=== PATIENT | female | born 1960 | race Caucasian/White ===

== ENCOUNTER 2023-02-04 17:50 | Emergency (ER) | payer OTHER, SELFPAY ==
[2023-02-04] VITALS (7 sets, daily range): BP systolic 119–158; BP diastolic 86–101; PULSE 91–106; RESP 18–24; TEMP 36.5; O2SAT 91–99
--- NOTE | ~2023-02-04 | XR_ITS ---
EXAMINATION: XR chest 2V Exam Date/Time: 02/04/2023 18:25 CDT HISTORY: HEAVY, SHARP, CHEST PAIN, EXTREME SOB Comparison: 01/10/2009. RESULT: Lines, tubes, and devices: None. Lungs and pleura: Clear. Cardiomediastinal silhouette: Stable. Other: No acute osseous or upper abdominal finding. IMPRESSION: No acute cardiopulmonary process. Reviewed, dictated and finalized at location K.
--- NOTE | ~2023-02-04 | CT_ITS ---
EXAMINATION: CT abdomen pelvis w con DATE: 02/04/2023 20:03 INDICATION: epigastric pain, elevated lipase TECHNIQUE: Computed tomography (CT) of the abdomen and pelvis was performed with 100 mL Omnipaque-350 intravenous contrast. Automated exposure control and iterative reconstruction technique were employe d. The dose-length product was 1491.27 mGy-cm. COMPARISON: 10/10/2009; ultrasound abdomen 02/04/2023. FINDINGS: Lower thorax: Left lower lobe scar/atelectasis. Liver: Normal. Biliary/Gallbladder: Gallbladder is normal. No bile duct dilation. Pancreas: No mass or duct dilation. No peripancreatic inflammatory change. near the head of the pancr eas may represent changes of chronic pancreatitis or adjacent vascular calcification. Spleen: Normal. Adrenals:No mass. Kidneys: Bilateral cortical scarring, severe on the right and mild on the left. Multiple bilateral no nobstructing calculi. Multiple subcentimeter bilateral hypodensities, too small to characterize but m ost likely represent cysts. No suspicious mass. No hydronephrosis. GI tract: No small or large bowel dilation. Normal appendix. Mesentery/Peritoneum: No ascites, mass, or free air. Retroperitoneum: No mass. Atherosclerotic abdominal aortic and/or arterial calcifications. Pelvis: Pelvic organs are within normal limits. Soft Tissues: Soft tissues and body wall unremarkable. Bones: No acute osseous finding. IMPRESSION: No acute abdominopelvic process detected. Reviewed, dictated and finalized at location K.
--- NOTE | ~2023-02-04 | US_ITS ---
EXAMINATION: US abdomen limited DATE: 02/04/2023 20:20 INDICATION: epigastric pain, elevated lft's and elevatedlipase TECHNIQUE: Multiple grayscale and Doppler ultrasound images of limited portions of the abdomen were o btained. COMPARISON: None available. FINDINGS: The visualized portions of the pancreas are normal. The liver is normal with normal echogen icity and echotexture. No surface nodularity. Normal hepatopetal flow in the main portal vein. 4 mm e chogenic focus without shadowing or twinkle artifact adherent to the gallbladder wall. The gallbladde r is otherwise normal with no abnormal wall thickening, pericholecystic fluid or stones. The common b ile duct measures 4 mm. There was no sonographic Prather sign. IMPRESSION: No sonographic evidence of cholecystitis. 4 mm gallbladder polyp versus adherent stone, no follow-up recommended at this time. Reviewed, dictated and finalized at location K. IMPRESSION: No sonographic evidence of cholecystitis. 4 mm gallbladder polyp versus adheren t stone, no follow-up recommended at this time.
--- NOTE | 2023-02-04 17:51 | ECG_ITS ---
Measurements Intervals [place] Rate: 101 P: 62 VA: 164 QRS: 55 QRSD: 82 T: 38 QT: 338 QTc: 438 Interpretive Statements SINUS TACHYCARDIA BASELINE ARTIFACT NONSPECIFIC T-WAVE ABNORMALITY BORDERLINE ECG NO PREVIOUS ECG AVAILABLE FOR COMPARISON Electronically Signed On 02-05-2023 11:50:01 CDT by Giorgi Velez M.D.
[2023-02-04 18:23] LABS: Basophils Absolute Auto 0.1 K/mm3 (0.0-0.1); Basophils Percent Auto 0.6 % (0.2-1.2); Eosinophils Absolute Auto 0.2 K/mm3 (0-0.3); Eosinophils Percent Auto 2.4 % (0-4.4); Hematocrit 41.3 % (37.0-47.0); Hemoglobin 13.4 g/dL (12.0-15.0); Immature Granulocyte Absolute 0.02 K/mm3 (0.00-0.031); Immature Granulocyte Percent A 0.2 % (0-0.5); Lymphocytes Percent Auto 25.7 % (18.3-44.2); Mean Corpuscular HGB Conc 32.4 g/dl (32-36); Mean Corpuscular Hemoglobin 29.7 pg (26-34); Mean Corpuscular Volume 91.6 fl (80-100); Mean Platelet Volume 12.5 fl (7.4-10.4); Monocytes Absolute Auto 1.2 K/mm3 (0.1-0.6); Monocytes Percent Auto 11.9 % (2.6-8.5); Neutrophils Percent Auto 59.2 % (45.5-73.1); Platelet Count Result 298 k/mm3 (150-375); Red Blood Count 4.51 M/mm3 (4.2-5.4); Red Cell Distribution Width 13.2 % (11.5-14.5); White Blood Count 10.1 K/mm3 (4.5-10.0)
[2023-02-04 18:42] LABS: Prothrombin Time 13.1 Seconds (11.1-14.7)
[2023-02-04 18:43] LABS: Alanine Aminotransferase 45 U/L (6-35); Albumin Level 4.5 g/dL (3.5-5.1); Alkaline Phosphatase 125 U/L (38-126); Anion Gap 8 mmol/L (8-16); Aspartate Amino Transferase 37 U/L (14-36); Bilirubin,Total 0.7 mg/dL (0.2-1.3); Blood Urea Nitrogen 12 mg/dL (7-17); Carbon Dioxide 28 mmol/L (22-30); Chloride 100 mmol/L (98-107); Estimated CRCL calculation 120 ml/min; Estimated Glomerular Filt Rate > 60; Glucose 115 mg/dL (65-110); Lipase 303 U/L (23-300); Partial Thromboplastin Time 29.7 SECONDS (22.3-36.8); Sodium 136 mmol/L (137-145)
[2023-02-04 18:54] LABS: Troponin I < 0.012 ng/mL (0.000-0.034)
--- NOTE | 2023-02-04 19:28 | ED.GENADULT ---
HPI - General Adult General Chief complaint: Chest Pain Stated complaint: CP since Friday, nausea Time Seen by Provider: 02/04/23 19:11 History of Present Illness HPI narrative: Patient 62-year-old female who presents the emergency department with chief complaint of chest pain. 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 Patient states that currently her pain is resolved patient denies vomiting denies diarrhea denies diaphoresis. Related Data Allergies Allergy/AdvReac Type Severity Reaction Status Date / Time No Known Allergies Allergy Mild Verified 05/23/08 14:17 Review of Systems Review of Systems: A 10 system review of systems was completed on the patient and is negative except for what is stated in the HPI. Nursing and ancillary documentation was reviewed. PMFSH Comments Prior cardiac stents Exam Narrative: GENERAL: Well-appearing, well-nourished, and in no acute distress. HEAD: Normocephalic, atraumatic. EYES: PERRLA and EOMI. ENT: Nares clear, no rhinorrhea or epistaxis. Mucous membranes moist. NECK: Supple. CHEST: Clear to auscultation. No respiratory distress. Chest wall is tender to palpation of the left sternal border HEART: Regular rate and rhythm. No murmur heard. Normal peripheral pulses. ABDOMEN: Soft, nontender, nondistended, normal active bowel sounds. EXTREMITIES: Normal range of motion. No edema. SKIN: Warm, dry, no rash. NEURO: No focal deficits. Alert and oriented x3. PSYCH: Normal mood and affect. Course Vital Signs Vital signs: Vital Signs Temperature 36.5 C 02/04/23 18:03 Pulse Rate 102 H 02/04/23 18:03 Respiratory Rate 18 02/04/23 18:03 Blood Pressure 119/101 H 02/04/23 18:03 Pulse Oximetry 94 02/04/23 18:03 Oxygen Delivery Room Air 02/04/23 18:03 Temperature 36.5 C 02/04/23 18:03 Pulse Rate 106 H 02/04/23 21:12 Respiratory Rate 24 H 02/04/23 21:12 Blood Pressure 158/86 H 02/04/23 21:12 Pulse Oximetry 99 02/04/23 21:12 Oxygen Delivery Room Air 02/04/23 18:03 Medical Decision Making MDM Narrative Medical decision making narrative: Differential diagnosis includes ACS, pancreatitis, cholecystitis, Laboratory studies were obtained which showed a normal CBC with a white count of 10.0 hemoglobin is 13.4 electrolytes were obtained which were within normal limits AST and ALT were slightly elevated with an AST of 37 and ALT of 45 bilirubin is normal at 0.7 troponin was negative for 0-hour and 3-hour lipase was 303 Chest x-ray showed no focal infiltrate EKG showed sinus tachycardia rate of [address] elevation or ST depression Due to the slightly elevated liver enzymes and the lipase of [address] were obtained that showed no evidence of pancreatitis and no evidence of acute cholecystitis. Vital Signs Vital Signs: Vital Signs Temperature 36.5 C 02/04/23 18:03 Pulse Rate 102 H 02/04/23 18:03 Respiratory Rate 18 02/04/23 18:03 Blood Pressure 119/101 H 02/04/23 18:03 Pulse Oximetry 94 02/04/23 18:03 Oxygen Delivery Room Air 02/04/23 18:03 Temperature 36.5 C 02/04/23 18:03 Pulse Rate 106 H 02/04/23 21:12 Respiratory Rate 24 H 02/04/23 21:12 Blood Pressure 158/86 H 02/04/23 21:12 Pulse Oximetry 99 02/04/23 21:12 Oxygen Delivery Room Air 02/04/23 18:03 Lab Data 02/04/23 18:06 02/04/23 18:06 Labs: Lab Results 02/04/23 02/04/23 Range/Units 18:06 21:09 WBC 10.1 H (4.5-10.0) K/mm3 RBC 4.51 (4.2-5.4) M/mm3 Hgb 13.4 (12.0-15.0) g/dL Hct 41.3 (37.0-47.0) % MCV 91.6 (80-100) fl MCH 29.7 (26-34) pg MC
[2023-02-04] MEDS: ASPIRIN 81 MG CHEWABLE TABLET 324 MG PO (19:35)
[2023-02-04 21:39] LABS: Troponin I < 0.012 ng/mL (0.000-0.034)
== END 2023-02-04 22:50 | disposition home or self-care (01) ==
PROVIDERS: Emergency Medicine; Emergency Provider Emergency Medicine; PCP Internal Medicine Gastroenterology
DX: R07.89 Other chest pain (principal); I51.9 Heart disease, unspecified; Z95.5 Presence of coronary angioplasty implant and graft; R00.0 Tachycardia, unspecified; R94.31 Abnormal electrocardiogram [ECG] [EKG]; R93.2 Abnormal findings on diagnostic imaging of liver and biliary tract
CPT/HCPCS: 36415; 71046; 74177; 76705; 80053; 83690; 84484; 85025; 85610; 85730; 93005; 99284; A9270; Q9967

== ENCOUNTER 2023-04-19 21:25 | Emergency (ER) | payer OTHER, SELFPAY ==
[2023-04-19 21:37] VITALS: BP 114/72; PULSE 84; RESP 16; TEMP 36.6; O2SAT 95
--- NOTE | 2023-04-19 21:43 | ED.DENTAL ---
HPI - Dental/Oral General Chief complaint: Dental/Oral Stated complaint: right side tooth/jaw pain Time Seen by Provider: 04/19/23 21:29 Source: patient and EMS Mode of arrival: EMS Limitations: no limitations History of Present Illness HPI Narrative: this is a 62-year-old female that presents via EMS after she was complaining of right jaw pain for the last week with some lower dental decay history of trauma back in 2003 with facial reconstruction surgery, currently no fever chills no shortness of breath no nausea vomiting no headaches no frontal sinus pressure and no earaches. Patient has a history of hypertension diabetes and COPD, denies any chest pain or abdominal pain no flank pain no dysuria. no upper facial swelling, no periorbital erythema or redness. MD Complaint: tooth pain Teeth map: 1. tooth decay with surrounding gum inflammation with right jaw swelling Onset (ago): day(s) Duration: constant Severity: moderate Severity scale (1-10): 6 Context: trauma (mechanism) and poor dental care Associated symptoms: gum swelling Related Data Home Medications Medication Instructions Recorded Confirmed atenolol 50 mg tablet mg 04/19/23 atorvastatin 80 mg tablet mg 04/19/23 budesonide-formoterol HFA 160 inhalation 04/19/23 mcg-4.5 mcg/actuation aerosol inhaler (Symbicort) carisoprodol 350 mg tablet mg 04/19/23 felodipine 10 mg tablet,extended mg PO 04/19/23 release 24 hr gabapentin 600 mg tablet mg 04/19/23 hydrocodone 10 mg-acetaminophen tablet 04/19/23 325 mg tablet lisinopril 2.5 mg tablet mg 04/19/23 metformin 500 mg tablet mg 04/19/23 04/19/23 potassium chloride 20 mEq meq PO 04/19/23 tablet,extended release(part/cryst) tiotropium bromide 2.5 inhalation 04/19/23 mcg/actuation mist for inhalation (Spiriva Respimat) venlafaxine 75 mg tablet mg 04/19/23 Allergies Allergy/AdvReac Type Severity Reaction Status Date / Time pravastatin Allergy Unknown Verified 04/19/23 21:34 Review of Systems Review of Systems: All systems reviewed & are unremarkable except as noted in HPI and below PMFSH Past Medical History Medical History COPD (chronic obstructive pulmonary disease) Diabetes mellitus HTN (hypertension) Exam Const: General: healthy appearing Nutritional Appearance: well nourished Orientation/consciousness: patient oriented x3 Limitations: no limitations HENMT: Head: normal to inspection Ears: external ears normal Face and sinus: sinuses nontender Teeth and gingiva: abnormal tooth and associated gingiva Other: Right lower jaw swelling Eyes: Conjunctivae: conjunctivae normal EOM: EOMs intact bilaterally Direct Ophthalmoscopy: no photophobia Neck: Neck: normal visual inspection, no lymphadenopathy and no meningeal signs Chest: Chest palpation & inspection: normal inspection of the chest Resp: Effort & Inspection: normal respiratory effort Auscultation: clear to auscultation bilaterally Cardio: Rate: regular rate Rhythm: regular rhythm GI: Auscultation: normal bowel sounds Skin: General skin exam: normal color Rashes: no rashes Wounds: no wounds Neuro: General: patient oriented x3, moves all extremities, no meningeal signs and no focal motor deficits Extrem: General: normal to inspection Psych: Mental Status: mental status grossly normal Affect: normal affect Course Course Emergency Course: patient receiving 1g IV ceftriaxone and IV Toradol for pain control. Otherwise vitals are stable blood pressure stable patient O2 sats 95% on room air she is afebrile. Vital Signs Vital signs: Vital Signs Temperature 36.6 C 04/19/23 21:37 Pulse Rate 84 04/19/23 21:37 Respiratory Rate 16 04/19/23 21:37 Blood Pressure 114/72 04/19/23 21:37 Pulse Oximetry 95 04/19/23 21:37 Oxygen Delivery Room Air 04/19/23 21:37 Temperature 36.6 C 04/19/23 21:37 Pulse Rate 84
[2023-04-19] MEDS: KETOROLAC 30 MG/ML VIAL (*BKC) IV PUSH (21:51)
[2023-04-19 22:19] VITALS: BP 114/72; PULSE 84; RESP 16; TEMP 36.6; O2SAT 95
== END 2023-04-19 22:26 | disposition home or self-care (01) ==
PROVIDERS: Emergency Provider Emergency Medicine
DX: K04.7 Periapical abscess without sinus (principal); K08.89 Other specified disorders of teeth and supporting structures; J44.9 Chronic obstructive pulmonary disease, unspecified; E11.9 Type 2 diabetes mellitus without complications; I10 Essential (primary) hypertension; Z79.891 Long term (current) use of opiate analgesic
CPT/HCPCS: 96365; 96375; 99284; J0696; J1885

== ENCOUNTER 2025-02-09 10:17 | Outpatient (CLI) | payer OTHER, SELFPAY ==
[2025-02-09 11:06] LABS: Anion Gap 7 mmol/L (4-12); Blood Urea Nitrogen 17 mg/dL (7-17); Calcium 10.1 mg/dL (8.4-10.2); Carbon Dioxide 26 mmol/L (22-30); Chloride 106 mmol/L (98-107); Estimated Glomerular Filt Rate > 60; Glucose 104 mg/dL (65-110); Osmolality Calculated 289 mOsm/kg (285-295); Potassium 4.8 mmol/L (3.4-5.0); Sodium 139 mmol/L (137-145)
--- OUTSIDE RECORDS SUMMARY | 2025-02-09 11:48 | XMS_ITS | CONTINUITY OF CARE DOCUMENT ---
Author Name taylorbritta kam Address Unknown Organization [facility] Address [address] [address] [facility] [address] [place] [address] Phone [phone] Care Team Providers Care Toy Mechanic Name Role Phone Laci Clark MD Unavailable CONSTANCE HAYWARD MD Unavailable [phone] CONSTANCE HAYWARD MD Unavailable [phone] INSURANCE PROVIDERS Payer name Policy type / Coverage type [place] [employer] party [place] MEDICAID (2) Medicaid [id number]
== END 2025-02-09 10:18 | disposition home or self-care (01) ==
PROVIDERS: PCP Internal Medicine Gastroenterology
DX: I10 Essential (primary) hypertension (principal)
CPT/HCPCS: 36415; 80048

== ENCOUNTER 2025-06-10 14:39 | Emergency (ER) | payer OTHER, SELFPAY ==
[2025-06-10 14:39] VITALS: BP 150/81; PULSE 70; RESP 20; TEMP 36.3; O2SAT 90
--- OUTSIDE RECORDS SUMMARY | 2025-06-10 14:43 | XMS_ITS | Encounter Summary ---
Author Organization [facility] Address [facility] [place] [address] Care Team Providers Care Senior Front End Developer Name Role Phone Donn Delgado MD Unavailable [phone] Lissette Wallace MD Primary Care Provider Unavail able Rizwan Zavala MD Primary Care Provider Encounter Details Date Type Department Care Team (Late st Contact Info) Description 01/30/2019 Abstract SFL CONVERSION [address] [place] [address] , Generic Conversion, Social History Tobacco Use Types Packs/Day Years Used Date Smoking Tobacco: Every Day Cigarettes Smokeless Tobacco: Never Alcohol Use Standard Drinks/Week Comments No 0 (1 standard drink = 0.6 oz pur e alcohol) Comments No Sex and Gender Information Value Date Recorded Sex Assigned at Female 01/20/2025 3:02 PM CDT Legal Sex Female 4:55 PM CDT Gender Identity Not on file Sexual Orientation Not on file Occupation Industry Job Start Date Job End Date Not on file Not on file Not on file Not on file documented as of this encounter Plan of Treatment Not on file documented as of this encounter Visit Diagnoses Not on filedocumented in this encounter Additional Health Concerns Infection Onset Date Last Indicated Resolved Time COVID-19 Rule Out 09/06/2021 09/06/2021 09/06/2021 8:37 PM RANGE ECOLOGIST COVID-19 Rule Out 09/06/2021 09/06/2021 09/07/2021 11:23 AM RANGE ECOLOGIST COVID-19 Rule Out 05/20/2022 05/20/2022 05/20/2022 2:36 AM CDT COVID-19 Rule Out 05/09/2023 05/09/2023 05/09/2023 1:17 PM CDT documented as of this encounter Care Teams Senior Front End Developer Relationship Specialty Start Date End Date Lissette Wallace MD [address] [place] [facility]. [address] [id number] PCP - General INTERNAL MEDICINE 05/25/17 06/01/25 Rizwan Zavala MD [address] [place] [phone] PCP - General FAMILY PRACTICE 06/02/25 Donn Delgado MD [address] [address] [place] Data Collection Specialist CARDIOVASCULAR DISEASE 12/16/16 documented as of this encounter
--- OUTSIDE RECORDS SUMMARY | 2025-06-10 14:43 | XMS_ITS | Encounter Summary ---
Author Organization [facility] Address [facility] [place] [address] Care Team Providers Care Irrigation Equipment Mechanic Name Role Phone Donn Delgado MD Unavailable [phone] Lissette Wallace MD Primary Care Provider Unavail able Rizwan Zavala MD Primary Care Provider Encounter Details Date Type Department Care Team (Late st Contact Info) Description 07/22/2018 Hospital Orders Only [facility] [place] [address] Donn Delgado MD [facility]. [address] [place], [place] [id number] Social History Tobacco Use Types Packs/Day Years [...] Rule Out 09/06/2021 09/06/2021 09/06/2021 8:37 PM WALLPAPERER COVID-19 Rule Out 09/06/2021 09/06/2021 09/07/2021 11:23 AM WALLPAPERER COVID-19 Rule Out 05/20/2022 05/20/2022 05/20/2022 2:36 AM CDT COVID-19 Rule Out 05/09/2023 05/09/2023 05/09/2023 1:17 PM CDT documented as of this encounter Care Teams Irrigation Equipment Mechanic Relationship Specialty Start Date End Date Lissette Wallace MD [facility]. [address] [address] PCP - General INTERNAL MEDICINE 05/25/17 06/01/25 Rizwan Zavala MD [address] [place] [phone] PCP - General FAMILY PRACTICE 06/02/25 Donn Delgado MD [address] [facility]. [address] [address] [place] Cupping Machine Operator CARDIOVASCULAR DISEASE 12/16/16 documented as of this encounter
--- OUTSIDE RECORDS SUMMARY | 2025-06-10 14:43 | XMS_ITS | Clinical Summary ---
Author Organization [facility] Address [facility] [place] [address] Care Team Providers Care Inclusion Intern Name Role Phone Donn Delgado MD Unavailable [phone] Rizwan Zavala MD Primary Care Provider Allergies Active Allergy Reactions Criticality Noted Date Comments Bupropion Hallucinations Medium 03/04/2022 Buspirone Hallucinations Medium 03/04/2022 Pravastatin Unknown 06/04/2017 Medications hydrocodone-chester taminophen 10-325 MG tablet Take 1 tablet by mouth every 8 (eight) hours as needed for Pain. 7 Active metFORMIN 500 MG tablet Take 1 tablet (500 mg total) by mouth daily with breakfast. 7 Active potassium chloride CR 20 MEQ tablet Take 1 tablet (20 mEq total) by mouth daily. 7 Active carisoprodol 350 MG tablet Take 1 tablet (350 mg total) by mouth 3 (three) times daily as needed for Muscle Spasms. 7 Active Felodipine 10 MG TABLET SR 24 HR Take 1 tablet by mouth daily. 90 tablet 3 7 Active atenolol 50 MG tablet Take 1 tablet (50 mg total) by mouth 2 (two) times daily. 180 tablet 1 8 Active albuterol sulfate HFA 108 (90 Base) MCG/ACT inhaler Inhale 2 puffs into the lungs 4 (four) times daily as needed for Shortness of breath. 2 Active SYMBICORT 160-4.5 MCG/ACT inhaler Inhale 2 puffs into the lungs 2 (two) times a day. 2 Active lisinopril 2.5 MG tablet Take 1 tablet (2.5 mg total) by mouth daily. 1 Active venlafaxine 75 MG tablet Take 1-2 tablets (75-150 mg total) by mouth 2 (two) times a day. 150 mg in the AM and 75 at bedtime. 1 Active atorvastatin (LIPITOR) 80 MG tablet Take 1 tablet (80 mg total) by mouth daily. 2 Active tiotropium (SPIRIVA RESPIMAT) 2.5 MCG/ACT inhaler (SPIRIVA RESPIMAT) Inhale 2 puffs into the lungs daily. Please provide assembled. 4 g 1 2 Active pregabalin (LYRICA) 75 MG capsule Take 1 capsule (75 mg total) by mouth 3 (three) times daily. 3 Active aspirin 325 MG tablet Take 1 tablet (325 mg total) by mouth daily. Active vitamin D2, ergocalciferol, (DRISDOL) 1.25 mg capsule Take 1 capsule (1.25 mg total) by mouth every 7 days. 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): Chronic -Continue Lipitor 40mg PO daily Fibromyalgia 07/19/2017 Anxiety 07/19/2017 Assessment & Plan (07/21/2017 12:14 PM PACKAGE DYEING MACHINE OPERATOR): Chronic -Continue Celexa 40mg PO daily -Home clonazepam qhs PRN for panic attack Lymphedema 07/16/2017 Assessment & Plan (07/19/2017 4:26 PM PACKAGE DYEING MACHINE OPERATOR): Chronic -Continue Lasix 40mg PO daily -Continue K+ 20meq PO daily Claudication 07/16/2017 Benign essential HTN 07/16/2017 Palpitations 07/16/2017 Angina pectoris 07/16/2017 CAD (coronary artery disease) 07/16/2017 Abnormal EKG 06/04/2017 Tobacco use 06/04/2017 Diabetes mellitus 06/04/2017 Assessment & Plan (07/21/2017 12:13 PM PACKAGE DYEING MACHINE OPERATOR): Chronic -Holding metformin for cath procedure -POC glucose checks Chest pain 06/04/2017 Assessment & Plan (02/16/2019 6:14 AM CDT): Chest Pain R/o Acute, unresolved, stable. Risk factors for ACS: DESx3, smoker, DM. Typical. Last stress test not recorded, [facility] 06/2018. EKG no acute ischemia, CXR cardiomegaly w/ vascular congestion, cardiac enzymes negative x 1. Heart score of 4 (Predicts 6-week risk of major adverse cardiac event). DDx: Anxiety given history, esophogeal spasm (better w/ nitro), CHF (vascular congestion, normal BNP), COPD (new O2 requirement 2 L nasal cannula? Weaning as tolerated) v drug reaction (took dab) -S/p 325 mg ASA in the ED, continue ASA 81mg daily -Sublingual nitroglycerin 0.4 mg for recurrent chest pain -Tylenol prn for mild pain -Trend cardiac enzymes at 0, 6, 12 hours. -Admit for Cardiac monitoring via telemetry -NPO @midnight -Obtain cardiac stress test in AM -Obtain echo (last done 2016 EF 65%) -HOLD BETA BLOCKERS for am stress -Cardiology consulted, appreciate recommendations -Obtain A1c and lipid panel ASCVD risk score -Counseled on smoking cessation -UDS ordered Assessment & Plan (07/21/2017 12:13 PM PACKAGE DYEING MACHINE OPERATOR): Hx of CAD with positive stress test on 04/10/17, planned for stenting with Dr. Delgado on 07/28/17 as outpatient EKG showed sinus bradycardia Troponin neg x3 -Cardiology consulted- Cath scheduled for 07/21/17 -Holding ASA for cath procedure -Continue Plavix, Nitro PRN Hypertension 06/04/2017 Assessment & Plan (07/19/2017 4:24 PM PACKAGE DYEING MACHINE OPERATOR): Chronic -Continue atenolol 50mg BID Encounters Date Type Department Care Team Description 06/02/2025 12:04 PM CDT - 06/02/2025 2:08 PM CDT Emergency [facility] [address] [place] [address] [place] [address] Reji Rock DO Neurologic Problem Discharge Disposition: Home or Self Care (Routine Discharge) 06/02/2025 Travel 05/09/2025 Scan [facility] Pre-Admission Testing [address] [place] [address] Erin Stiles RN from Last 3 Months Family History Medical History Relation Comments Heart Attack Brother Open Heart Brother Stent Cardiac Brother CAD Father CAD Mother CAD Son Relation Status Comments Brother (Age 63) Father Mother Son Social History Tobacco Use Types Packs/Day Years Used Date Smoking Tobacco: Every Day Cigarettes 1 25 Smokeless Tobacco: Never Tobacco Cessation:Ready to Q uit: Not Asked; Counseling Given: Not Answered Alcohol Use Standard Drinks/Week Comments No 0 (1 standard drink = 0.6 oz pur e alcohol) rarely Humiliation, Afraid, Rape, and Kick questionnair e Answer Date Recorded Within the last year, have y ou been afraid of your partner or ex-partner? No 05/09/2023 Within the last year, have y ou been humiliated or emotionally abused in other ways by your partner or ex-partner? No Within the last year, have y ou been kicked, hit, slapped, or otherwise physically hurt by your partner or ex-partner? No 05/09/2023 Within the last year, have y ou been raped or forced to have any kind of sexual activity by your partner or ex-partner? No 05/09/2023 Overall Financial Resource Strain (CARDIA) Answe r Date Recorded How hard is it for you to pa y for the very basics like food, housing, medical care, and heating? Not hard at all 05/09/2023 Hunger Vital Sign Answer Date Recorded Within the past 12 months, y ou worried that your food would run out before you got the money to buy more. Never true 05/09/20 23 Within the past 12 months, t he food you bought just didn't last and you didn't have money to get more. Never true 05/09/2023 PRAPARE - Transportation Answer Date Re corded In the past 12 months, has l ack of transportation kept you from medical appointments or from getting medications? No 04/25 In the past 12 months, has l ack of transportation kept you from meetings, work, or from getting things needed for daily living? No 05/09/2023 Housing Stability Vital Sign Answer Zeferino e Recorded In the last 12 months, was t here a time when you were not able to pay the mortgage or rent on time? No 05/09/2023 In the last 12 months, how many places have you lived? 1 05/09/2023 In the last 12 months, was t here a time when you did not have a steady place to sleep or slept in a longterm (including now)? No 05/09/2023 Comments No Sex and Gender Information Value Date Recorded Sex Assigned at Female 01/20/2025 3:02 PM CDT Legal Sex Female 4:55 PM CDT Gender Identity Not on file Sexual Orientation Not on file Occupation Industry Job Start Date Job End Date Not on file Not on file Not on file Not on file Last Filed Vital Signs Vital Sign Reading Time Taken Comments Blood Pressure 153/81 06/02/2025 12:04 PM CDT Pulse 59 06/02/2025 12:04 PM CDT Temperature 36.8 C (98.3 F) 06/02/2025 12:04 PM CDT Respiratory Rate 18 06/02/2025 12:04 PM CDT Oxygen Saturation 93% 06/02/2025 12:04 PM CDT Inhaled Oxygen Concentration - - Weight 115.2 kg (254 lb) 06/02/2025 12:04 PM CDT Height 152.4 cm (5') 06/02/2025 12:04 PM CDT Body Mass Index 49.61 06/02/2025 12:04 PM CDT Plan of Treatment Health Maintenance Due Date Last Done Comments Cervical Cancer Screening Pap Smear (Age 30 to 64) Every 3 Years 1961 Colorectal Cancer Screening Colonoscopy (10 Years) 1961 Kidney Health Evaluation 1961 Annual Physical 1964 Diabetes: Retinopathy Eye Exam 1979 Hepatitis C 1979 Pneumococcal Vaccine: 50+ Years (1 of 2 - PCV) 1980 Cervical Cancer Screening Pap with HPV Testing (Age 30 to 64) Every 5 Years 1991 Cervical Cancer Screening with HPV 1991 Mammogram Screening 2001 Lung Cancer Screening 2011 Zoster Vaccines (1 of 2) 2011 RSV Immunization or 60+ Years (1 - Risk 60-74 years 1-dose series) 2021 Hemoglobin A1C 11/08/2023 05/10/2023, 01/24, 07/19/2017 ASCVD LDL 05/11/2024 05/11/2023, 01/24, 07/20/2017, Additional history exists Lipid Panel 05/11/2024 05/11/2023, 01/24, 07/21/2018, Additional history exists DTaP, Tdap and Td Vaccines (2 - Td or Tdap) 09/22/2024 09/22/2014 COVID-19 Vaccine ( - season) 2025 Influenza Adult (#1) 2025 06/23/2018, 07/07/2017, 06/13/2016, Additional history exists Hepatitis A Vaccines Aged Out No long er eligible based on patient's age to complete this topic Meningococcal B Vaccine Aged Out No l onger eligible based on patient's age to complete this topic Meningococcal Vaccine Aged Out No chico mary eligible based on patient's age to complete this topic RSV Immunizations Under 20 Months Aged Out No longer eligible based on patient's age to complete this topic Goals Goal Patient Goal Type Associated Problems Recent Progress Patient-Stated? 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 Procedure Name Priority Date/Time Associated Diagnosis Comments D-DIMER, QUANTITATIVE STAT 06/02/2025 12:45 PM CDT TROPONIN, QUANT STAT 06/02/2025 12:45 PM CDT COMPREHENSIVE METABOLIC PANEL STAT 06/02/2025 12:45 PM CDT CBC W/DIFF AUTOMATED STAT 06/02/2025 12:[address] HEAD WO CON STAT 06/02/2025 12:38 PM CDT XR CHEST PORTABLE STAT 06/02/2025 12: 38 PM CDT ECG 12-LEAD STAT 06/02/2025 12:18 PM CDT LIPID PANEL Routine 05/11/2023 11:17 AM CDT HEMOGLOBIN, GLYCOSYLATED Routine 05/10/2023 12:31 AM CDT from Last 3 Months or Most Recently Relevant to Health Maintenance Results * (ABNORMAL) COMPREHENSIVE METABOLIC PANEL (06/02/2025 12:45 PM CDT) SODIUM S/P/B 141 136 - 145 MMOL/L 06/02/2025 1:14 PM CDT [facility] POTASSIUM S/P/B 4.1 3.5 - 5.1 MMOL/L 06/02/2025 1:14 PM CDT [facility] CHLORIDE S/P/B 103 98 - 107 MMOL/L 06/02/2025 1:14 PM CDT [facility] CO2 28.2 21.0 - 32.0 MMOL/L 06/02/2025 1:14 PM CDT [facility] GLUCOSE 106(H) 70 - 99 MG/DL 06/02/2025 1:14 PM CDT [facility] Comment: FASTING GLUCOSE 100 TO 125 MG/DL IS CONSISTENT WITH IMPAIRED FASTING GLUCOSE. FASTING GLUCOSE >125 MG/DL IS CONSISTENT WITH DIABETES. RANDOM GLUCOSE >200 MG/DL WITH HYPERGLYCEMIC SYMPTOMS IS CONSISTENT WITH DIABETES. PER ADA GUIDELINES BUN 11 6 - 24 MG/DL 06/02/2025 1:14 PM CDT [facility] CREATININE S/P/B 0.62 0.55 - 1.02 MG/DL 06/02/2025 1:14 PM CDT [facility] CALCIUM S/P/B 9.4 8.4 - 10.5 MG/DL 06/02/2025 1:14 PM CDT [facility] BILIRUBIN TOTAL S/P/B 0.4 0.2 - 1.0 MG/DL 06/02/2025 1:14 PM CDT [facility] Comment: THIS ASSAY IS NOT RECOMMENDED FOR PATIENTS UNDERGOING TREATMENT WITH ELTROMBOPAG DUE TO THE POTENTIAL FOR FALSELY ELEVATED RESULTS. ALKALINE PHOSPHATASE S/P/B 141(H) 50 - 130 U/L 06/02/2025 1:14 PM CDT [facility] AST 15 15 - 37 U/L 06/02/2025 1:14 PM CDT [facility] ALT 22 14 - 59 U/L 06/02/2025 1:14 PM CDT [facility] TOTAL PROTEIN S/P/B 7.5 6.4 - 8.2 G/DL 06/02/2025 1:14 PM CDT [facility] ALBUMIN S/P/B 3.5 3.4 - 5.0 G/DL 06/02/2025 1:14 PM CDT [facility] ANION GAP 9.8 5.0 - 15.0 MMOL/L 06/02/2025 1:14 PM CDT [facility] OSMOLALITY (CALC) 292 MOSM/KG 025 1:14 PM CDT [facility] Comment:REFERENCE RANGE NOT ESTABLISHED GFR ESTIMATE >90 >89 ML/MIN/1. 73 M2 06/02/2025 1:14 PM CDT [facility] GFR NOTES GFR REFERENCE S: 06/02/2025 1:14 PM T [facility] Comment: THE ESTIMATED GFR IS CALCULATED USING THE 2020 CKD-EPI EQUATION. THE FOLLOWING CATEGORIES FOR GRADING RENAL FUNCTION ARE RECOMMENDED BY THE INTERNATIONAL SOCIETY OF NEPHROLOGY (KDIGO 2012 CLINICAL PRACTICE GUIDELINE). G1,NORMAL OR HIGH: >89 ml/min/1.73 m2 G2,MILDLY DECREASED: 60-89 ml/min/1.73 m2 G3A,MILDLY TO MODERATELY DECREASED: 45-59 ml/min/1.73 m2 G3B,MODERATELY TO SEVERELY DECREASED: 30-44 ml/min/1.73 m2 G4,SEVERELY DECREASED: 15-29 ml/min/1.73 m2 G5,KIDNEY FAILURE: <15 ml/min/1.73 m2 06/02/2025 12:4 5 PM CDT [facility] Darío CRESPO LABORATORY Final Result Performing Organization Address City/State/[facility] de Phone Number [facility] [address] [place] [id number], * D-DIMER, QUANTITATIVE (06/02/2025 12:45 PM CDT) [facility] D-DIMER 289 0 - 500 ng{FEU}/mL 06/02/2025 1:04 PM CDT [facility] Comment: D-Dimer values less than or equal to 500 ng/mL FEU have a negative predictive value of >95% for exclusion of deep vein thrombosis and pulmonary embolism. In patients over 50 (who tend to have higher normal baseline D-Dimer values), recent studies suggest age-adjusted D-Dimer cutoff values (calculated as: age [years] x 10 ng/mL) result in equivalent outcomes and no additional false negative findings. 06/02/2025 12:4 5 PM CDT Reji Rock DO LABORATORY Final Result Performing Organization Address [facility] de Phone Number [facility] [address] [place] [phone], * (ABNORMAL) CBC W/DIFF AUTOMATED (06/02/2025 12:45 PM CDT) [facility] WBC 12.56(H) 4.00 - 10.80 x10'3/uL 06/02/2025 12:57 PM CDT [facility] RBC 4.49 4.10 - 5.40 x10'6/uL 06/02/2025 12:57 PM CDT [facility] HGB 13.3 12.0 - 16.0 G/DL 06/02/2025 12:57 PM CDT [facility] HCT 42.0 36.0 - 47.0 % 06/02/2025 12:57 PM CDT [facility] MCV 93.5 78.0 - 100.0 FL 06/02/2025 12:57 PM CDT [facility] MCH 29.6 27.0 - 31.0 PG 06/02/2025 12:57 PM CDT [facility] MCHC 31.7(L) 33.0 - 36.0 G/DL 06/02/2025 12:57 PM CDT [facility] RDW 12.3 11.5 - 14.5 % 06/02/2025 12:57 PM CDT [facility] PLT 392(H) 150 - 350 x10'3/uL 06/02/2025 12:57 PM CDT [facility] MPV 11.9(H) 7.4 - 10.4 FL 06/02/2025 12:57 PM CDT [facility] CBC COMMENT NORMAL REFERENCE RANGE NOT ESTABLISHED FOR THE PROPORTIONAL LEUKOCYTE DIFFERENTIAL. 06/02/2025 12:57 PM CDT [facility] NEUTROPHILS % 66.9 % 06/02/2025 12:57 PM CDT [facility] LYMPHOCYTES % 22.4 % 06/02/2025 12:57 PM CDT [facility] MONOCYTES % 7.9 % 06/02/2025 12:57 PM CDT [facility] EOSINOPHILS % 2.1 % 06/02/2025 12:57 PM CDT [facility] BASOPHILS % 0.5 % 06/02/2025 12:57 PM CDT [facility] IMMATURE GRANS % 0.2 % 06/02/20 12:57 PM CDT [facility] NRBC % 0.0 % 06/02/2025 12:57 PM CDT [facility] ABS. NEUTROPHILS 8.41(H) 1.60 - 8.30 x10'3/uL 06/02/2025 12:57 PM CDT [facility] ABS. LYMPHOCYTES 2.81 0.80 - 4.70 x10'3/uL 06/02/2025 12:57 PM CDT [facility] ABS. MONOCYTES 0.99 0.00 - 1.50 x10'3/uL 06/02/2025 12:57 PM CDT [facility] ABS. EOSINOPHILS 0.26 0.00 - 0.40 x10'3/uL 06/02/2025 12:57 PM CDT [facility] ABS. BASOPHILS 0.06 0.00 - 0.20 x10'3/uL 06/02/2025 12:57 PM CDT [facility] ABS. IMMATURE GRANULOCYTES 0.03 0.00 - 0.03 x10'3/uL 06/02/2025 12:57 PM CDT [facility] ABS. NUCLEATED RBC'S 0.00 0.00 - 0.01 x10'3/uL 06/02/2025 12:57 PM CDT [facility] 06/02/2025 12:4 5 PM CDT Reji Rock DO LABORATORY Final Result [facility] [address] [place] [address], * TROPONIN, QUANT (06/02/2025 12:45 PM CDT) TROPONIN I HIGH SENSITIVITY 7 0 - 51 ng/L 06/02/2025 1:14 PM CDT [facility] 06/02/2025 12:4 5 PM CDT Reji Rock DO LABORATORY Final Result Performing Organization Address City/[facility]/ZIP Co de Phone Number [facility] [address] [place] [address], * CT HEAD WO CON (06/02/2025 12:38 PM CDT) Anatomical Region Laterality Modality Head Computed Tomogra phy 06/02/2025 12:3 9 PM CDT Impressions 06/02/2025 12:42 PM CDT IMPRESSION: 1. No acute intracranial process identified. 2. Stable small vessel disease. 3. Minimal left maxillary sinusitis. Ordered By: REJI ROCK Interpreted By: Eugenio Vega MD, 06/02/2025 12:39 PM Narrative 06/02/2025 12:42 PM [address]T [address] [place] [address] Examination: CT of the head without contrast. Exam time: 1232 hours. Clinical history: Headache. Dizziness. History of diabetes and hypertension. Comparison: 05/09/2023 ([facility]). Technique: Noncontrast axial scans from skull base to vertex. Sagittal and coronal reconstructions were performed from the data set. A dose lowering technique was used for this procedure, which may include, but is not limited to, dose reduction techniques, automated exposure control, the use of iterative reconstruction and ALARA/Image Gently techniques. Findings: The ventricles are normal in size and configuration and unchanged. No shift of midline or mass effect is noted. There is stable prominence of the fissures and sulci, compatible with age. Physiologic calcification in the basal ganglia is again evident. There is stable periventricular decreased attenuation, compatible with small vessel disease. Intracranially, no new areas of abnormal x-ray attenuation are identified. In particular, there is no mass, hemorrhage or sign of acute stroke. No extracerebral fluid collections. Minor mucosal thickening is now evident in the left maxillary sinus. The mastoid air cells and paranasal sinuses are otherwise clear. Procedure Note Eugenio Vega MD - 06/02/[address] [place] [address] Examination: CT of the head without contrast. Exam time: 1232 hours. Clinical history: Headache. Dizziness. History of diabetes andhypertension. Comparison: 05/09/2023 ([facility]). Technique: Noncontrast axial scans from skull base to vertex. Sagittal andcoronal reconstructions were performed from the data set. A dose loweringtechnique was used for this procedure, which may include, but is notlimited to, dose reduction techniques, automated exposure control, the useof iterative reconstruction and ALARA/Image Gently techniques. Findings: The ventricles are normal in size and configuration andunchanged. No shift of midline or mass effect is noted. There is stableprominence of the fissures and sulci, compatible with age. Physiologiccalcification in the basal ganglia is again evident. There is stableperiventricular decreased attenuation, compatible with small vesseldisease. Intracranially, no new areas of abnormal x-ray attenuation areidentified. In particular, there is no mass, hemorrhage or sign of acutestroke. No extracerebral fluid collections. Minor mucosal thickening isnow evident in the left maxillary sinus. The mastoid air cells andparanasal sinuses are otherwise clear. IMPRESSION: 1. No acute intracranial process identified. 2. Stable small vessel disease. 3. Minimal left maxillary sinusitis. Ordered By: REJI ROCK Interpreted By: Eugenio Vega MD, 06/02/2025 12:39 PM Reji Rock DO CT Final Result * XR CHEST PORTABLE (06/02/2025 12:38 PM CDT) Anatomical Region Laterality Modality Chest Radiographic Carmel ging 06/02/2025 12:4 4 PM CDT Impressions 06/02/2025 12:46 PM CDT IMPRESSION: No significant change. No acute cardiopulmonary process identified. Ordered By: REJI ROCK Interpreted By: Eugenio Vega MD, 06/02/2025 12:44 PM Narrative 06/02/2025 12:46 PM [address] [place] [address] Examination: Portable chest. Exam time: 1226 hours. Clinical history: Dizziness. Leukocytosis. Comparison: 01/20/2025 ([facility]). Technique: AP upright view. Findings: Allowing for differences in projection and rotation, the cardiomediastinal silhouette is stable. Allowing for projection and body habitus, the heart size is normal. Pulmonary vascularity appears within normal limits. No acute infiltrates or effusions are identified. The visualized bony thorax is stable. Procedure Note Eugenio Vega MD - 10/09/[address] [place] [address] Examination: Portable chest. Exam time: 1226 hours. Clinical history: Dizziness. Leukocytosis. Comparison: 01/20/2025 ([facility]). Technique: AP upright view. Findings: Allowing for differences in projection and rotation, thecardiomediastinal silhouette is stable. Allowing for projection and bodyhabitus, the heart size is normal. Pulmonary vascularity appears withinnormal limits. No acute infiltrates or effusions are identified. Thevisualized bony thorax is stable. IMPRESSION: No significant change. No acute cardiopulmonary process identified. Ordered By: REJI ROCK Interpreted By: Euegnio Vega MD, 06/02/2025 12:44 PM Reji Rock DO GENERAL IMAGING Final Result * ECG 12 lead (06/02/2025 12:18 PM CDT) 06/02/2025 12:[address] [facility] - 06/04/2025 9:51 AM CDT [address] [place] [address] Test Date: 2025-06-02 Pat Name: KAT COHEN Department: 3 Room: Gender: Female Chief Diversity Officer: : 1960 Requested By: REJI ROCK Order Number: [id number] Osiris MD: Marvin Lazcano Measurements Intervals [place] Rate: 62 P: 68 MO: 163 QRS: 75 QRSD: 73 T: 65 QT: 415 QTc: 424 Interpretive Statements SINUS RHYTHM NORMAL ECG Procedure Note Marvin Lazcano MD - 06/04/2025 [address] [place] [address] Test Date: 2025-06-02 Pat Name: KAT COHEN Department: 3 Room: Gender: Female Chief Diversity Officer: : 1960 Requested By: REJI ROCK Order Number: [id number] Reading MD: Marvin Lazcano Measurements Intervals [place] Rate: 62 P: 68 MO: 163 QRS: 75 QRSD: 73 T: 65 QT: 415 QTc: 424 Interpretive Statements SINUS RHYTHM NORMAL ECG us Reji Rock DO ECG ORDERABLES Final Result [facility] * LIPID PANEL (05/11/2023 11:17 AM CDT) CHOLESTEROL 134 <200 MG/DL 05/11/2023 12:16 PM CDT [facility] TRIGLYCERIDES 103 <150 MG/DL 05/11/2023 12:16 PM CDT [facility] HDL 48 >40.0 MG/DL 05/11/2023 12:16 PM CDT [facility] LDL (CALCULATED) 65 <100 MG/DL 05/11/20 12:16 PM CDT [facility] NON HDL CHOLESTEROL 86 <130 MG/DL 05/11 12:16 PM CDT [facility] CHOL/HDL RATIO 2.8 0.0 - 4.5 05/11/2023 12:16 PM CDT [facility] VLDL CALCULATION 21 5 - 55 MG/DL 05/11/2023 12:16 PM CDT [facility] LIPID INTERPRETATION 05/11/2023 12:16 PM CDT [facility] Comment: [facility] CONCENSUS REPORT RECOMMENDATIONS: ADULT CHILD LOW RISK: CHOLESTEROL <200 <170 TRIGLYCERIDE <150 --- HDL >=60 --- LDL <100 <110 BORDERLINE: CHOLESTEROL 200-239 170-199 TRIGLYCERIDE 150-199 --- HDL 40-59 --- LDL 100-159 110-129 HIGH RISK: CHOLESTEROL >=240 >=200 TRIGLYCERIDE >=200 --- HDL <40 --- LDL >=160 >=130 05/11/2023 11:1 7 AM CDT Glenny Rodriguez PA-C LABORATORY Final Resul t Performing Organization Address [facility] Co de Phone Number [facility] [address] [place] [address], * (ABNORMAL) HEMOGLOBIN, GLYCOSYLATED (05/10/2023 12:31 AM CDT) HGB A1C 5.8(H) <5.7 % 05/10/2023 1:23 AM CDT [facility] Comment: ADA GUIDELINES 2010 5.7 TO 6.4% INCREASED RISK OF DIABETES > OR = 6.5% CONSISTENT WITH DIABETES ESTIMATED AVG GLUCOSE 120 mg/dL 05/10/2023 1:23 AM CDT [facility] 05/10/2023 12:3 1 AM CDT Maryam Russell MD LABORATORY Final Resu lt Performing Organization Address [facility] Co de Phone Number [facility] [address] [place] [address], from Last 3 Months or Most Recently Relevant to Health Maintenance Insurance [place] Advance Directives * Full Code (Latest Code Status on File) Date Activated Date Inactivated Comments 05/09/2023 4:56 PM 05/12/2023 5:10 PM * Full Code Date Activated Date Inactivated Comments 05/20/2022 6:32 AM 05/20/2022 5:17 PM * Full Code Date Activated Date Inactivated Comments 09/06/2021 9:01 PM 09/09/2021 3:00 PM * Full Code Date Activated Date Inactivated Comments 02/15/2019 11:21 PM 02/16/2019 6:32 PM * Full Code Date Activated Date Inactivated Comments 07/21/2017 3:37 PM 07/22/2017 3:11 PM Care Teams Inclusion Intern Relationship Specialty Start Date End Date Rizwan Zavala MD [address] [place] [address] PCP - General FAMILY PRACTICE 06/02/25 Donn Delgado MD [facility]. [address] [address] [place] [employer] CARDIOVASCULAR DISEASE 12/16/16
--- NOTE | 2025-06-10 14:46 | ED.DENTAL ---
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 She has plans to see a dentist soon. She is due for a maxillofacial surgeon evaluation. Metal in her jaw is starting to peak through soft tissue into the skin. She is specifically having pain of the left face. She initially had a little dizziness at home that resolved at this time. She relates that pain. 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 Patient said she took an ambulance code she did not have a ride to the hospital. MD Complaint: tooth pain (Many) and tooth injury (Many) Onset (ago): week(s) (2-3) Duration: constant Severity: severe Severity scale (1-10): 8 Relieving factors: prescription analgesics (She has [place] from her primary doctor that is not helping at this time) Exacerbating factors: chewing, cold, heat, drinking fluids and swallowing Context: history of dental caries, trauma (mechanism) and poor dental care Associated symptoms: other (Left facial cheek swelling) Treatment prior to arrival: oral analgesic Related Data Home Medications ?Medication ?Instructions ?Recorded ?Confirmed ?Last Taken ?Type atenolol 50 mg tablet 50 mg PO BID 04/19/23 05/04/25 Unknown History atorvastatin 80 mg tablet 80 mg PO DAILY 04/19/23 05/04/25 Unknown History budesonide-formoterol HFA 160 1 inh inhalation DAILY PRN 04/19/23 05/04/25 Unknown History mcg-4.5 mcg/actuation aerosol shortness of breath or wheezing inhaler (Symbicort) carisoprodol 350 mg tablet 350 mg PO TID PRN muscle pain 04/19/23 05/04/25 Unknown History felodipine 10 mg tablet,extended 10 mg PO DAILY 04/19/23 05/04/25 Unknown History release 24 hr hydrocodone 10 mg-acetaminophen 1 tablet PO TID 04/19/23 05/04/25 Unknown History 325 mg tablet lisinopril 2.5 mg tablet 2.5 mg PO DAILY 04/19/23 05/04/25 Unknown History metformin 500 mg tablet 500 mg PO DAILY 04/19/23 05/04/25 Unknown History potassium chloride 20 mEq 20 meq PO DAILY 04/19/23 05/04/25 Unknown History tablet,extended release(part/cryst) tiotropium bromide 2.5 2 puff inhalation DAILY PRN 04/19/23 05/04/25 Unknown History mcg/actuation mist for inhalation shortness of breath or wheezing (Spiriva Respimat) venlafaxine 75 mg tablet 75 mg PO BID 04/19/23 05/04/25 Unknown History albuterol sulfate 90 mcg/actuation 1 puff inhalation DAILY 04/06/25 05/04/25 Unknown History aerosol inhaler ergocalciferol (vitamin D2) 1,250 50,000 unit PO WEEKLY 04/06/25 05/04/25 Unknown History mcg (50,000 unit) capsule (Vitamin D2) losartan 50 mg tablet 50 mg PO DAILY 05/04/25 05/04/25 Unknown History Allergies Allergy/AdvReac Type Severity Reaction Status Date / Time pravastatin Allergy Unknown Verified 06/10/25 15:09 Review of Systems Review of Systems: All systems reviewed & are unremarkable except as noted in HPI and below Constitutional: Constitutional: Reports no additional constitutional complaints Eyes: Eyes: Reports no additional eye complaints ENT: Reports system reviewed and no additional complaints, except as documented Cardiovascular: Cardiovascular: Reports no additional cardiovascular complaints Respiratory: Respiratory: Reports no additional respiratory complaints Gastrointestinal: Gastrointestinal: Reports no additional gastrointestinal complaints Genitourinary: Genitourinary: Reports no additional female genitourinary complaints Musculoskeletal: Musculoskeletal: Reports no additional musculoskeletal complaints Integumentary/Breasts: Skin/Breast: Reports system reviewed and no additional complaints, except as docu Neurologic: Reports system reviewed and no additional complaints, except as documented Psychiatric: Psychiatric: Reports no additional psychiatric complaints Endocrine: Endocrine: Reports no additional endocrine complaints Hematologic/Lymphatic: Hematologic/Lymphatic: Reports no additional hematologic/lymphatic complaints Allergic/Immunologic: Allergic/Immunologic: Reports no additional allergic/immunologic complaints PMFSH Past Medical History Medical History Anxiety Diabetes type 2, controlled CAD (coronary artery disease) HTN (hypertension) COPD (chronic obstructive pulmonary disease) Diabetes mellitus Surgical History Surgical History History of coronary artery stent placement Social History Social History Smoking status: Current every day smoker Tobacco type: cigarettes Substance use: current Substance use type: marijuana Last use: 3-4 days week Living arrangements: alone Spiritual care concerns: No Exam Const: General: healthy appearing Nutritional Appearance: well nourished Orientation/consciousness: patient oriented x3 HENMT: Head: normal to inspection Ears: external ears normal Face/Nose/Sinus: Normal external nose present Mouth: No Normal oral and palatal mucosa present Teeth and gingiva: abnormal dentition Throat: posterior oropharynx normal Other: Patient has dental caries and fractured teeth and gingivitis throughout the oral cavity; specifically the left side of her face and dental are severely decayed with fractures; no abscesses Eyes: Conjunctivae: conjunctivae normal Pupils: Equal, round and reactive pupils present EOM: EOMs intact bilaterally Neck: Neck: normal visual inspection Chest: Chest palpation & inspection: normal inspection of the chest Resp: Effort & Inspection: normal respiratory effort and not labored Auscultation: clear to auscultation bilaterally and no crackles Cardio: Rate: regular rate Rhythm: regular rhythm Heart sounds: no murmurs GI: Inspection: non-distended GI Palp: Yes Soft to palpation and No Tenderness to palpation present (GI) Auscultation: normal bowel sounds : General: Yes bladder normal to palpation Back/Spine/Pelvis: Back: no CVA tenderness Skin: General skin exam: normal color Rashes: no rashes Wounds: no wounds Neuro: General: patient oriented x3, moves all extremities and no meningeal signs Extrem: General: normal to inspection, no clubbing, cyanosis or edema and no pedal edema Psych: Mental Status: mental status grossly normal Affect: normal affect Attitude: cooperative Course Vital Signs Vital signs: Vital Signs Temperature 36.3 C L 06/10/25 14:39 Pulse Rate 70 06/10/25 14:39 Respiratory Rate 20 06/10/25 14:39 Blood Pressure 150/81 H 06/10/25 14:39 Pulse Oximetry 90 06/10/25 14:39 Oxygen Delivery Room Air 06/10/25 14:39 Temperature 36.3 C L 06/10/25 14:39 Pulse Rate 70 06/10/25 14:39 Respiratory Rate 20 06/10/25 14:39 Blood Pressure 150/81 H 06/10/25 14:39 Pulse Oximetry 90 06/10/25 14:39 Oxygen Delivery Room Air 06/10/25 14:39 MDM - Dental/Oral MDM Narrative Medical decision making narrative: Patient is a 65-year-old female with left jaw and facial pain with swelling with metal hardware in her jaw. Pain control and antibiotics. Dentist as soon as possible. Discharge Plan Discharge Clinical Impression: Maxilla pain, Mandible pain Patient Disposition: Home Condition: Stable Instructions: Antibiotic Form, Acute Dental Trauma (ED), Toothache (ED) Additional Instructions: Please see the dentist and maxillofacial surgeon as soon as possible. Patient Language: Vietnamese Prescriptions: New amoxicillin-pot clavulanate 875-125 mg tablet 1 tablet PO BID 10 Days Qty: 20 0RF No Action carisoprodol 350 mg tablet 350 mg PO TID PRN (Reason: muscle pain) metformin 500 mg tablet 500 mg PO DAILY atorvastatin 80 mg tablet 80 mg PO DAILY venlafaxine 75 mg tablet 75 mg PO BID hydrocodone-acetaminophen 10-325 mg tablet 1 tablet PO TID potassium chloride 20 mEq tablet,ER particles/crystals 20 meq PO DAILY felodipine 10 mg tablet extended release 24 hr 10 mg PO DAILY lisinopril 2.5 mg tablet 2.5 mg PO DAILY atenolol 50 mg tablet 50 mg PO BID budesonide-formoterol [Symbicort] 160-4.5 mcg/actuation HFA aerosol inhaler 1 inh INHALATION DAILY PRN (Reason: shortness of breath or wheezing) Spiriva Respimat 2.5 mcg/actuation mist 2 puff INHALATION DAILY PRN (Reason: shortness of breath or wheezing) losartan 50 mg tablet 50 mg PO DAILY ergocalciferol (vitamin D2) [Vitamin D2] 1,250 mcg (50,000 unit) capsule 50,000 unit PO WEEKLY albuterol sulfate 90 mcg/actuation HFA aerosol inhaler 1 puff INHALATION DAILY Follow-up/Referrals: Sally,MD Rizwan [Primary Care Provider, Family Practice] Stand Alone Forms: Work/School Release IP
[2025-06-10] MEDS: KETOROLAC (*BKC) 60 MG/2 ML VIAL IM (15:13)
[2025-06-10] MEDS: HYDROcodone/acetaminophen (*CRX) 10-325 MG TABLET 1 TAB PO (15:14)
[2025-06-10 15:47] VITALS: BP 144/87; PULSE 66; RESP 20; O2SAT 94
== END 2025-06-10 15:47 | disposition home or self-care (01) ==
PROVIDERS: Emergency Provider Emergency Medicine; PCP Family Medicine
DX: R68.84 Jaw pain (principal); R42 Dizziness and giddiness; E11.9 Type 2 diabetes mellitus without complications; I25.10 Atherosclerotic heart disease of native coronary artery without angina pectoris; I10 Essential (primary) hypertension; J44.9 Chronic obstructive pulmonary disease, unspecified; F17.210 Nicotine dependence, cigarettes, uncomplicated
CPT/HCPCS: 96372; 99283; A9270; J1885

== ENCOUNTER 2025-06-11 08:53 | Inpatient (IN) | payer OTHER, SELFPAY ==
[2025-06-11] VITALS (30 sets, daily range): BP systolic 130–157; BP diastolic 53–88; PULSE 65–81; RESP 15–22; TEMP 36.6–37.1; O2SAT 88–94; BMI 44.3
--- NOTE | ~2025-06-11 | CT_ITS ---
CT HEAD NON-CONTRAST Clinical History: headache/ weakness/ AMS Comparison: None Technique: Unenhanced axial images skull base to vertex Coronal, sagittal reformats CT images acquired with automatic exposure control for dose reduction DLP: 681 mGy-cm Findings: White matter changes, typically chronic microvascular ischemic disease. Right thalamic lacune. Sulci, ventricles: Unremarkable. No intracerebral hemorrhage. No evidence acute territorial infarct. No mass effect, midline shift. Bony calvarium intact. Visualized paranasal sinuses: Left maxillary mucosal thickening. Mastoid air cells: Clear. IMPRESSION: 1. No acute intracranial findings. Reviewed, dictated and finalized at location R.
--- NOTE | ~2025-06-11 | XR_ITS ---
EXAMINATION: XR chest 1V portable COMPARISON: No comparisons available. HISTORY: hypoxia. SHORTNESS OF BREATH. FINDINGS: The lungs are clear, no effusion. No pneumothorax. Heart is normal size. Mediastinal and hilar contours are within normal limits. Bony thorax no acute abnormality. Miscellaneous: None Impression: No acute cardiopulmonary abnormality. Reviewed, dictated and finalized at location P. Impression: No acute cardiopulmonary abnormality.
--- NOTE | ~2025-06-11 | CT_ITS ---
CT facial bones CLINICAL HISTORY: swelling left jaw, involves Lt. upper posterior molar. Technique: Images through face Sagittal and coronal reformats. No contrast CT images acquired with automatic exposure control for dose reduction DLP: 525 mGy-cm Comparison: None Findings: Nondisplaced nasal fracture. Likely chronic. Otherwise no acute facial fracture identified. Left cheek soft tissue swelling. Plate and screw fixation right anterior mandible and left lateral mandible. Left mandibular premolar periapical lucencies/infection. Left maxillary premolar cavity. Left maxillary posterior molar periapical dental lucency, overlying soft tissue inflammation IMPRESSION: 1. Left maxillary posterior molar periapical dental lucency and/or infection. Overlying soft tissue inflammatory change without abscess. Recommend dental consultation. 2. Additional findings as above. Reviewed, dictated and finalized at location R. IMPRESSION: 1. Left maxillary posterior molar periapical dental lucency and/or infection. Overlying soft tissue inflammatory change without abscess. Recommend dental con sultation. 2. Additional findings as above.
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
--- NOTE | 2025-06-11 09:20 | ECG_ITS ---
Test Date: 2025-06-11 09:29:49 Measurements Intervals [place] Rate: 67 P: 68 [place]: 148 QRS: 49 QRSD: 76 T: 43 QT: 402 QTc: 425 Interpretive Statements SINUS RHYTHM LOW QRS VOLTAGE IN PRECORDIAL LEADS CANNOT R/O SEPTAL INFARCT, AGE INDETERMINATE BORDERLINE T WAVE ABNORMALITY- ANTERIOR LEADS BASELINE ARTIFACT- I, II, II AVR, AVL ,AVF ABNORMAL ECG No previous ECG available for comparison Electronically Signed On 06-11-2025 13:40:18 CDT by Loc Riley D.O.
[2025-06-11 09:42] LABS: Hematocrit 40.2 % (35.0-49.0); Hemoglobin 12.6 g/dL (12.0-15.0); Immature Granulocyte Percent A 0.4 % (0.0-0.0); Lymphocytes Absolute Auto 1.52 K/mm3 (1.10-4.50); Mean Corpuscular HGB Conc 31.3 g/dL (32-36); Mean Corpuscular Hemoglobin 29.6 pg (27.0-31.0); Mean Corpuscular Volume 94.4 fL (78.0-102.0); Nucleated Red Blood Cells Absolute Auto 0.00 K/mm3 (0.00-0.00); Nucleated Red Blood Cells Perc 0.0 % (0-0.0); Platelet Count Result 349 K/mm3 (150-420); Red Blood Count 4.26 M/mm3 (4.20-5.40); White Blood Count 15.8 K/mm3 (4.8-10.8)
[2025-06-11 09:54] LABS: Alanine Aminotransferase 26 U/L (6-35); Albumin Level 4.3 g/dL (3.5-5.1); Alkaline Phosphatase 104 U/L (38-126); Anion Gap 8 mmol/L (4-12); Aspartate Amino Transferase 26 U/L (14-36); Bilirubin,Total 0.4 mg/dL (0.2-1.3); Blood Urea Nitrogen 13 mg/dL (7-17); Calcium 9.5 mg/dL (8.4-10.2); Carbon Dioxide 31 mmol/L (22-30); Chloride 100 mmol/L (98-107); Estimated CRCL calculation 110 ml/min; Estimated Glomerular Filt Rate > 60; Glucose 148 mg/dL (65-110); Magnesium 1.9 mg/dL (1.6-2.3); Osmolality Calculated 291 mOsm/kg (285-295); Potassium 4.7 mmol/L (3.4-5.0); Sodium 139 mmol/L (137-145); Total Protein 8.6 g/dL (6.3-8.2)
[2025-06-11] MEDS: SODIUM CHLORIDE 0.9% IV 1,000 ML 999 ML IV CONT (09:57)
[2025-06-11 10:05] LABS: Troponin I < 0.012 ng/mL (0.000-0.034)
[2025-06-11] MEDS: AMPICILLIN SODIUM/SULBACTAM 3 GM in SODIUM CHLORIDE 0.9% IV 100 ML 200 ML IVPB ×3 (10:21→23:23)
[2025-06-11 11:13] LABS: CRP 2.3 mg/dL (<1.0)
[2025-06-11] MEDS: KETOROLAC 15 MG/ML VIAL (*BKC) IV PUSH (11:16)
[2025-06-11 11:45] LABS: Add Urine Microscopic? NO; Appearance Urine Clear (Clear); Glucose Urine UA Negative (Negative); Leukocyte Esterase Ur Negative LEU/UL (Negative); Nitrate Urine Negative (Negative); Specific Grav Ur 1.015 (1.010-1.020)
[2025-06-11 12:22] LABS: Cannabinoid Screen Urine Positive (Negative)
[2025-06-11 13:21] LABS: Thyroid Stimulating Hormone Reflex 1.980 uIU/mL (0.465-4.68)
--- NOTE | 2025-06-11 14:06 | PC.NURSE ---
Patient assisted to room 209 on stretcher from ED x 1 staff member. She was helped into bed at this time. Patient A/O x 3 able to make needs known. Denies pain at this time. Oriented to room and call light.
[2025-06-11] MEDS: HYDROcodone/acetaminophen (*CRX) 10-325 MG TABLET 1 TAB PO (16:35)
[2025-06-11] MEDS: VENLAFAXINE HCL 75 MG TABLET PO (17:44)
[2025-06-12] VITALS (7 sets, daily range): BP systolic 124–157; BP diastolic 60–83; PULSE 68–88; RESP 16–20; TEMP 36–37; O2SAT 88–91
[2025-06-12] MEDS: HYDROcodone/acetaminophen (*CRX) 10-325 MG TABLET 1 TAB PO ×3 (01:05→20:06)
[2025-06-12] MEDS: AMPICILLIN SODIUM/SULBACTAM 3 GM in SODIUM CHLORIDE 0.9% IV 100 ML 200 ML IVPB ×4 (05:58→23:33)
[2025-06-12 06:11] LABS: Hematocrit 39.5 % (35.0-49.0); Hemoglobin 12.1 g/dL (12.0-15.0); Immature Granulocyte Percent A 0.4 % (0.0-0.0); Lymphocytes Absolute Auto 1.89 K/mm3 (1.10-4.50); Mean Corpuscular HGB Conc 30.6 g/dL (32-36); Mean Corpuscular Hemoglobin 29.8 pg (27.0-31.0); Mean Corpuscular Volume 97.3 fL (78.0-102.0); Nucleated Red Blood Cells Absolute Auto 0.00 K/mm3 (0.00-0.00); Nucleated Red Blood Cells Perc 0.0 % (0-0.0); Platelet Count Result 339 K/mm3 (150-420); Red Blood Count 4.06 M/mm3 (4.20-5.40); White Blood Count 13.6 K/mm3 (4.8-10.8)
[2025-06-12 06:40] LABS: Alanine Aminotransferase 24 U/L (6-35); Albumin Level 4.0 g/dL (3.5-5.1); Alkaline Phosphatase 97 U/L (38-126); Anion Gap 4 mmol/L (4-12); Aspartate Amino Transferase 26 U/L (14-36); Bilirubin,Total 0.4 mg/dL (0.2-1.3); Blood Urea Nitrogen 8 mg/dL (7-17); Calcium 9.3 mg/dL (8.4-10.2); Carbon Dioxide 36 mmol/L (22-30); Chloride 99 mmol/L (98-107); Estimated CRCL calculation 110 ml/min; Estimated Glomerular Filt Rate > 60; Glucose 115 mg/dL (65-110); Osmolality Calculated 287 mOsm/kg (285-295); Potassium 4.6 mmol/L (3.4-5.0); Sodium 139 mmol/L (137-145); Total Protein 8.0 g/dL (6.3-8.2)
[2025-06-12] MEDS: ALBUTEROL SULFATE (*SP) INHALER 1 PUFF INHALATION (08:28)
[2025-06-12] MEDS: VENLAFAXINE HCL 75 MG TABLET PO ×2 (08:33→16:54)
[2025-06-12] MEDS: FELODIPINE ER 5 MG TAB 10 MG PO (08:33)
[2025-06-12] MEDS: ENOXAPARIN 40 MG/0.4 ML SYRINGE SUB-Q (08:34)
[2025-06-12] MEDS: ATORVASTATIN 40 MG TABLET 80 MG PO (08:34)
[2025-06-12] MEDS: POTASSIUM CHLORIDE 20 MEQ ER TABLET PO (08:35)
--- NOTE | 2025-06-12 12:02 | PM.IMHP ---
H&P: HPI History of Present Illness Date/Time: 06/12/25 12:02 Chief Complaint: swelling and pain to the left face, jaw Narrative: Patient is a 65 year old female with PMH of HTN, DM type 2, anxiety, CAD s/p stent, COPD and is a current smoker. Patient presented to the ER with complaints of swelling and pain to the left side of her face and jaw. Patient was seen on 06/10 in our ER with the same complaint and was given Augmentin. Patient returned to the ER due to increased swelling and new complaints of dizziness and lethargy. Patient had a CT of the head without acute findings and a CT of the face which showed Left maxillary posterior molar periapical dental lucency and/or infection. Overlying soft tissue inflammatory change without abscess. Recommend dental consultation. Patient;s lab work showed wbc 15.8, UDS positive for opiates and cannabis. Patient was given IV Unasyn. Patient was admitted for further evaluation and treatment. Review of Systems Review of Systems: All systems reviewed & are unremarkable except as noted in HPI and below PMFSH Past Medical History Medical History Anxiety Diabetes type 2, controlled CAD (coronary artery disease) HTN (hypertension) COPD (chronic obstructive pulmonary disease) Diabetes mellitus Surgical History Surgical History History of coronary artery stent placement Social History Social History Smoking packs per day: 1 Smoking cigarettes per day: 20.0 Smoking status: Current every day smoker Tobacco type: cigarettes Second hand tobacco smoke exposure: Yes Alcohol intake: never Substance use: current Substance use type: marijuana Last use: 3-4 days week Lack of Transportation: YES Lack of Food: Never True Current Housing: I Have Housing Concerned About Future Housing: No Difficulty Paying Gas/Electric Bills: No Difficulty Paying for Meds: No Currently Unemployed: No Education: Decline to Answer Difficulty w/ Childcare or Family Care: No Living arrangements: alone Spiritual care concerns: No Meds Home Medications and Allergies Home Medications ?Medication ?Instructions ?Recorded ?Confirmed ?Type atenolol 50 mg tablet 50 mg PO BID 04/19/23 06/11/25 History atorvastatin 80 mg tablet 80 mg PO DAILY 04/19/23 06/11/25 History budesonide-formoterol HFA 160 1 inh inhalation DAILY PRN 04/19/23 06/11/25 History mcg-4.5 mcg/actuation aerosol shortness of breath or wheezing inhaler (Symbicort) carisoprodol 350 mg tablet 350 mg PO TID PRN muscle pain 04/19/23 06/11/25 History felodipine 10 mg tablet,extended 10 mg PO DAILY 04/19/23 06/11/25 History release 24 hr hydrocodone 10 mg-acetaminophen 1 tablet PO TID 04/19/23 06/11/25 History 325 mg tablet lisinopril 2.5 mg tablet 2.5 mg PO DAILY 04/19/23 06/11/25 History metformin 500 mg tablet 500 mg PO DAILY 04/19/23 06/11/25 History potassium chloride 20 mEq 20 meq PO DAILY 04/19/23 06/11/25 History tablet,extended release(part/cryst) tiotropium bromide 2.5 2 puff inhalation DAILY PRN 04/19/23 06/11/25 History mcg/actuation mist for inhalation shortness of breath or wheezing (Spiriva Respimat) venlafaxine 75 mg tablet 75 mg PO BID 04/19/23 06/11/25 History albuterol sulfate 90 mcg/actuation 1 puff inhalation DAILY 04/06/25 06/11/25 History aerosol inhaler ergocalciferol (vitamin D2) 1,250 50,000 unit PO WEEKLY 04/06/25 06/11/25 History mcg (50,000 unit) capsule (Vitamin D2) losartan 50 mg tablet 50 mg PO DAILY 05/04/25 06/11/25 History amoxicillin 875 mg-potassium 1 tablet PO BID 10 days #20 tabs 06/10/25 06/11/25 Rx clavulanate 125 mg tablet hydrocodone 10 mg-acetaminophen 1 tablet PO Q8H PRN pain #20 tabs 06/10/25 06/11/25 Rx 325 mg tablet Allergies Allergy/AdvReac Type Severity Reaction Status Date / Time pravastatin Allergy Unknown Verified 06/11/25 14:20 Vital Signs Vital Signs - 24 hr 06/11/25 12:15 06/11/25 12:17 06/11/25 12:30 Temperature Pulse Rate 74 72 75 Respiratory Rate 17 17 16 Blood Pressure 135/68 Pulse Oximetry 94 Oxygen Delivery Room Air Oxygen Flow Rate 06/11/25 12:32 06/11/25 12:36 06/11/25 16:00 Temperature 98.8 F Pulse Rate 73 77 75 Respiratory Rate 18 21 H 18 Blood Pressure 134/72 130/53 L Pulse Oximetry 90 Oxygen Delivery Nasal Cannula Oxygen Flow Rate 1 06/11/25 17:39 06/12/25 00:00 06/12/25 08:00 Temperature 96.8 F L 98.6 F Pulse Rate 70 76 81 Respiratory Rate 18 16 Blood Pressure 157/83 H 137/75 Pulse Oximetry 91 90 Oxygen Delivery Nasal Cannula Nasal Cannula Oxygen Flow Rate 2 2 06/12/25 08:29 Temperature Pulse Rate 81 Respiratory Rate Blood Pressure Pulse Oximetry Oxygen Delivery Oxygen Flow Rate Exam Const: General: comfortable and no acute distress HENMT: Face/Nose/Sinus: Normal nares present Mouth: Yes moist mucous membranes Other: left cheek/jaw edematous, poor dentention noted Eyes: General: appearance normal, both eyes and all related structures Sclera: sclerae normal Neck: Neck: supple Resp: Effort & Inspection: normal respiratory effort Auscultation: clear to auscultation bilaterally Cardio: Rate: regular rate Rhythm: regular rhythm GI: GI Palp: Yes Soft to palpation Auscultation: normal bowel sounds Skin: General skin exam: normal color and no rashes or lesions noted Neuro: Speech: normal speech Motor exam (neuro): 5/5 motor strength present throughout Sensory Exam: normal sensation Extrem: General: normal to inspection Psych: Mental Status: mental status grossly normal Affect: normal affect H&P: Results Labs Labs: Short CBC 06/12/25 Range/Units 05:42 WBC 13.6 H (4.8-10.8) K/mm3 Hgb 12.1 (12.0-15.0) g/dL Hct 39.5 (35.0-49.0) % Plt Count 339 (150-420) K/mm3 [facility] 06/12/25 05:42 Sodium 139 Potassium 4.6 Chloride 99 Carbon Dioxide 36 H BUN 8 D Creatinine 0.57 L Glucose 115 H Calcium 9.3 Liver Function 06/12/25 Range/Units 05:42 Total Bilirubin 0.4 (0.2-1.3) mg/dL AST 26 (14-36) U/L ALT 24 (6-35) U/L Alkaline Phosphatase 97 (38-126) U/L Albumin 4.0 (3.5-5.1) g/dL Assessment and Plan Assessment and plan (1) Infected dental caries: Code(s): K02.9 - Dental caries, unspecified; K04.7 - Periapical abscess without sinus Status: Acute Assessment and Plan: patient failed outpatient treatment with PO Augmentin Face CT showed Left maxillary posterior molar periapical dental lucency and/or infection. Overlying soft tissue inflammatory change without abscess. Recommend dental consultation Patient with significant swelling to left face/cheek/jaw wbc 15.8, CRP 2.3 continue IV zosyn encourage oral hygiene pain control AM labs (2) Leukocytosis: Code(s): D72.829 - Elevated white blood cell count, unspecified Status: Acute Assessment and Plan: wbc 15.8 on admission improved to 13.6 today continue IV Zosyn AM labs (3) Swelling of left side of face: Code(s): R22.0 - Localized swelling, mass and lump, head Status: Acute Assessment and Plan: due to infected dental caries IV Zosyn pain control Monitor for improvement (4) Acute alteration in mental status: Code(s): R41.82 - Altered mental status, unspecified Status: Acute Assessment and Plan: patient was lethargic on arrival to the ER s/p head CT without acute findings thought to be secondary to infection vs pain medication monitor for imrpovement (5) Acute hypoxic respiratory failure: Code(s): J96.01 - Acute respiratory failure with hypoxia Status: Acute Assessment and Plan: patient's o2 sats on arrival to floor were in the low 80s 2L applied and sats improved to 90% patient denies oxygen at home (6) COPD (chronic obstructive pulmonary disease): Code(s): J44.9 - Chronic obstructive pulmonary disease, unspecified Status: Acute Assessment and Plan: no signs of acute exacerbation continue Symbicort continue Spiriva continue albuterol PRN (7) Tobacco abuse: Code(s): Z72.0 - Tobacco use Status: Acute Assessment and Plan: encourage cessation patient offered a nicotine patch (8) CAD (coronary artery disease): Code(s): I25.10 - Atherosclerotic heart disease of [place] coronary artery without angina pectoris Status: Acute Assessment and Plan: denies chest pain continue atorvastatin (9) Dyslipidemia: Code(s): E78.5 - Hyperlipidemia, unspecified Status: Acute Assessment and Plan: continue atorvastatin (10) HTN (hypertension): Code(s): I10 - Essential (primary) hypertension Status: Acute Assessment and Plan: continue atenolol continue felodipine continue losartan hold home lisinopril asked patient to discuss with PCP why she is on both an ACEI and ARB (11) Diabetes mellitus: Code(s): E11.9 - Type 2 diabetes mellitus without complications Status: Acute Assessment and Plan: hold home medications acccu checks avoid hypoglycemia SSI insulin Quality VTE Prophylaxis VTE prophylaxis: pharmacologic ordered
--- NOTE | 2025-06-12 14:44 | PC.NURSE ---
Today at 1440 patient changed to inpatient.
[2025-06-12] MEDS: ACETAMINOPHEN 325 MG TABLET 650 MG PO (16:55)
--- NOTE | 2025-06-12 18:00 | PC.NURSE ---
Entered room to cotton picker operator dinner tray. Patient Pale, drooling, speaking in a slow rasping voice and staring into space toward ceiling.Her voice sounds as if she needs to clear her throat. Ask patient to cough and clear throat, she then has small emisis. She then started reading white board out loud to this development writer. Looked at this nurse and with slurred speak informs she is having a spell, Vs within normal parameters. 132/70,89%/2L/NC, 68, 20. Recovered within approx. 5 minutes to normal self.
--- NOTE | 2025-06-12 18:18 | PC.NURSE ---
Checked on patient, she is completely back to her normal self, skin pink in color and sitting up strait with call light in her hand watching TV. Patient states, I feel it coming on but I cant seem to do anything but let it happen.
[2025-06-13] VITALS: BP 112/61; PULSE 64; RESP 20; TEMP 36.2; O2SAT 92
--- NOTE | 2025-06-13 00:20 | PC.NURSE ---
Pt is having an episode; Pt is having slurred speech but was able to state that the antibiotic infusion was finished. Episode cleared up and pt back to normal status and function.
--- NOTE | 2025-06-13 02:20 | PC.NURSE ---
Pt's IV site dressing coming apart; New IV dressing applied.
[2025-06-13] MEDS: ACETAMINOPHEN 325 MG TABLET 650 MG PO (03:30)
--- NOTE | 2025-06-13 03:35 | PC.NURSE ---
Pt c/o headache pain and rated her pain as a '10' on a 1-10 pain scale. Pt requested tylenol to relieve her headache. Pt was given Tylenol 650 mg PO to relieve headache pain.
--- NOTE | 2025-06-13 04:27 | PC.NURSE ---
Pt asleep and no signs of headache noted. Tylenol effective in relieving headache pain.
[2025-06-13 05:30] VITALS: O2SAT 92
[2025-06-13] MEDS: AMPICILLIN SODIUM/SULBACTAM 3 GM in SODIUM CHLORIDE 0.9% IV 100 ML 200 ML IVPB ×2 (05:36→11:24)
--- NOTE | 2025-06-13 06:00 | PC.NURSE ---
IV antibiotic infusing as ordered.
[2025-06-13 06:19] LABS: Alanine Aminotransferase 22 U/L (6-35); Albumin Level 3.7 g/dL (3.5-5.1); Alkaline Phosphatase 97 U/L (38-126); Anion Gap 4 mmol/L (4-12); Aspartate Amino Transferase 23 U/L (14-36); Bilirubin,Total 0.4 mg/dL (0.2-1.3); Blood Urea Nitrogen 9 mg/dL (7-17); Calcium 9.5 mg/dL (8.4-10.2); Carbon Dioxide 35 mmol/L (22-30); Chloride 100 mmol/L (98-107); Estimated CRCL calculation 117 ml/min; Estimated Glomerular Filt Rate > 60; Glucose 100 mg/dL (65-110); Osmolality Calculated 286 mOsm/kg (285-295); Potassium 4.7 mmol/L (3.4-5.0); Sodium 139 mmol/L (137-145); Total Protein 6.9 g/dL (6.3-8.2)
[2025-06-13 07:15] LABS: Hematocrit 38.6 % (35.0-49.0); Hemoglobin 12.1 g/dL (12.0-15.0); Immature Granulocyte Percent A 0.3 % (0.0-0.0); Lymphocytes Absolute Auto 2.65 K/mm3 (1.10-4.50); Mean Corpuscular HGB Conc 31.3 g/dL (32-36); Mean Corpuscular Hemoglobin 30.1 pg (27.0-31.0); Mean Corpuscular Volume 96.0 fL (78.0-102.0); Nucleated Red Blood Cells Absolute Auto 0.00 K/mm3 (0.00-0.00); Nucleated Red Blood Cells Perc 0.0 % (0-0.0); Platelet Count Result 327 K/mm3 (150-420); Red Blood Count 4.02 M/mm3 (4.20-5.40); White Blood Count 10.9 K/mm3 (4.8-10.8)
[2025-06-13 08:00] VITALS: BP 155/91; PULSE 71; RESP 18; TEMP 36.5; O2SAT 96
[2025-06-13] MEDS: ALBUTEROL SULFATE (*SP) INHALER 1 PUFF INHALATION (08:05)
[2025-06-13] MEDS: ENOXAPARIN 40 MG/0.4 ML SYRINGE SUB-Q (08:06)
[2025-06-13] MEDS: HYDROcodone/acetaminophen (*CRX) 10-325 MG TABLET 1 TAB PO (08:07)
[2025-06-13] MEDS: POTASSIUM CHLORIDE 20 MEQ ER TABLET PO (08:08)
[2025-06-13] MEDS: ATORVASTATIN 40 MG TABLET 80 MG PO (08:08)
[2025-06-13] MEDS: VENLAFAXINE HCL 25 MG TABLET 75 MG PO (08:50)
[2025-06-13 08:52] VITALS: PULSE 71
[2025-06-13] MEDS: FELODIPINE ER 5 MG TAB 10 MG PO (08:52)
[2025-06-13] MEDS: LOSARTAN POTASSIUM 50 MG TABLET PO (11:21)
[2025-06-13 12:00] VITALS: PULSE 68; O2SAT 92
[2025-06-13 12:05] VITALS: PULSE 79; O2SAT 90
--- NOTE | 2025-06-13 12:20 | HOMEO2EVAL ---
Evaluation was performed at [facility] Home Oxygen Evaluation RC: Home Oxygen (O2) Evaluation Start: 06/13/25 11:04 Freq: ONCE Status: Active Protocol: RPE Activity Type Activity Date Activity User E-sign Co-sign Detail Recorded Client Recorded Date Recorded By Document 06/13/25 12:00 DV [id number] 06/13/25 12:19 DV Document 06/13/25 12:05 DV [id number] 06/13/25 12:19 DV 06/13/25 06/13/25 12:00 12:05 Home O2 Evaluation [Oxygen] -Test Phase Resting Exercise -Oxygen Delivery Room Air Room Air [Pulse Oximetry] -Pulse Oximetry (90-100 %) 92 90 [Pulse Rate] -Pulse Rate (60-100 beats/min) 68 79 [Evaluation] -Activity Tolerance Good -Rating of Perceived Dyspnea (PD) +2 Mild, Some Difficulty, Noticeable to the Observer -Rate of Perceived Exertion (PE) 12 Query Text:Click the Protocol Button to View the RPE Scale [Exercise] -Ambulation Distance (feet) 103 -Ambulation Distance (meters) 31.39 [Comments] -Home Oxygen Evaluation Comments Will begin walk Patient on RA tolerated well. Walked approx. 103 ft with sats staying 90 and above. HR up to 80. Encouraged pursed lip breathing. [Charges] -Evaluation Charges O2 Evaluation Charge
--- NOTE | 2025-06-13 13:43 | PM.DS ---
DS: Admitting Diagnosis Discharge Date 06/13/2025 Admitting Diagnosis left sided infected dental caries DS: Discharge Diagnosis Discharge Diagnosis (1) Infected dental caries: Code(s): K02.9 - Dental caries, unspecified; K04.7 - Periapical abscess without sinus Status: Acute Assessment and Plan: patient failed outpatient treatment with PO Augmentin Face CT showed Left maxillary posterior molar periapical dental lucency and/or infection. Overlying soft tissue inflammatory change without abscess. Recommend dental consultation Patient with significant swelling to left face/cheek/jaw wbc 15.8, CRP 2.3 continue IV zosyn, change to PO Augmentin on discharge, patient still has 9 days at home encourage oral hygiene pain control patient instructed to call dentist to inform them of admission and antibiotics and to schedule an appointment for extraction of teeth to help prevent further infections, patient voices understanding (2) Leukocytosis: Code(s): D72.829 - Elevated white blood cell count, unspecified Status: Acute Assessment and Plan: wbc 15.8 on admission improved to 10.9 today discharge home on PO Augmentin for another 9 days (3) Swelling of left side of face: Code(s): R22.0 - Localized swelling, mass and lump, head Status: Acute Assessment and Plan: due to infected dental caries IV Zosyn pain control Marked improvement today on exam (4) Acute alteration in mental status: Code(s): R41.82 - Altered mental status, unspecified Status: Acute Assessment and Plan: patient was lethargic on arrival to the ER s/p head CT without acute findings thought to be secondary to infection vs pain medication patient now alert and oriented (5) Acute hypoxic respiratory failure: Code(s): J96.01 - Acute respiratory failure with hypoxia Status: Acute Assessment and Plan: patient's o2 sats on arrival to floor were in the low 80s 2L applied and sats improved to 90% patient denies oxygen at home Chest x-ray done today without acute abnormality home o2 walk study completed and patient was able to complete without requiring oxygen patient will follow up with PCP to monitor need for home o2 in the future (6) COPD (chronic obstructive pulmonary disease): Code(s): J44.9 - Chronic obstructive pulmonary disease, unspecified Status: Acute Assessment and Plan: no signs of acute exacerbation continue Symbicort continue Spiriva continue albuterol PRN (7) Tobacco abuse: Code(s): Z72.0 - Tobacco use Status: Acute Assessment and Plan: encourage cessation patient offered a nicotine patch (8) CAD (coronary artery disease): Code(s): I25.10 - Atherosclerotic heart disease of [place] coronary artery without angina pectoris Status: Acute Assessment and Plan: denies chest pain continue atorvastatin (9) Dyslipidemia: Code(s): E78.5 - Hyperlipidemia, unspecified Status: Acute Assessment and Plan: continue atorvastatin (10) HTN (hypertension): Code(s): I10 - Essential (primary) hypertension Status: Acute Assessment and Plan: continue atenolol continue felodipine continue losartan hold home lisinopril asked patient to discuss with PCP why she is on both an ACEI and ARB (11) Diabetes mellitus: Code(s): E11.9 - Type 2 diabetes mellitus without complications Status: Acute Assessment and Plan: hold home medications acccu checks avoid hypoglycemia SSI insulin DS: Summary Hospital Course Reason for hospitalization: left facial swelling and pain, AMS Hospital Course: Patient is a 65 year old female with PMH of HTN, DM type 2, anxiety, CAD s/p stent, COPD and is a current smoker. Patient presented to the ER with complaints of swelling and pain to the left side of her face and jaw. Patient was seen on 06/10 in our ER with the same complaint and was given Augmentin. Patient returned to the ER due to increased swelling and new complaints of dizziness and lethargy. Patient had a CT of the head without acute findings and a CT of the face which showed Left maxillary posterior molar periapical dental lucency and/or infection. Overlying soft tissue inflammatory change without abscess. Recommend dental consultation. Patient;s lab work showed wbc 15.8, UDS positive for opiates and cannabis. Patient was given IV Unasyn. Patient was admitted for further evaluation and treatment. On arrival to the floor the patient required o2 by [place] to maintain oxygen saturations > 90%. Patient denied using oxygen at home. Chest x-ray completed without acute abnormalities. Ambulatory oxygen study completed on day of discharge and patient passed without the need for oxygen. Patient was continued on IV zosyn and on exam today there was marked improvement in the left facial swelling. Patient also reported a marked improvement in pain. Patient's wbc count improved to 10.9. Patient discharged home on PO Augmentin for an additional 9 days, patient has the medication at home that she filled before going to the ER. Patient has an appointment with the dentist in June, however I asked her to call and inform them of the admission and what antibiotics she is taking and see if they can arrange a sooner visit for her. Patient voices understanding. Patient instructed to use Listerine 4 times a day after meals and before bed. Patient encouraged to practice good oral hygiene and regular dental care. Patient was discharged home. Time Spent with Patient Time attestation: Total time spent providing and/or coordinating discharge services: 35 Minutes Exam Const: General: comfortable and no acute distress HENMT: Face/Nose/Sinus: Normal nares present Mouth: Yes moist mucous membranes Other: left cheek/jaw edematous still but improved from admission, poor shelter noted Eyes: General: appearance normal, both eyes and all related structures Sclera: sclerae normal Neck: Neck: supple Resp: Effort & Inspection: normal respiratory effort Auscultation: clear to auscultation bilaterally Cardio: Rate: regular rate Rhythm: regular rhythm GI: Auscultation: normal bowel sounds Skin: General skin exam: normal color and no rashes or lesions noted Neuro: Speech: normal speech Motor exam (neuro): 5/5 motor strength present throughout Sensory Exam: normal sensation Extrem: General: normal to inspection Psych: Mental Status: mental status grossly normal Affect: normal affect DS: Data Data Completed and Pending Labs on day of discharge: Labs from last 24 hours 06/13/25 06/13/25 06/13/25 11:19 08:11 07:06 WBC 10.9 H RBC 4.02 L Hgb 12.1 Hct 38.6 MCV 96.0 MCH 30.1 MCHC 31.3 L RDW 12.4 Plt Count 327 MPV 12.3 H Immature Gran % (Auto) 0.3 H Neut % (Auto) 60.2 Lymph % (Auto) 24.2 [place] % (Auto) 9.1 Eos % (Auto) 5.7 Baso % (Auto) 0.5 Lymph # (Auto) 2.65 [place] # (Auto) 0.99 H Eos # (Auto) 0.62 H Baso # (Auto) 0.05 Abs Immat Gran (auto) 0.03 H Absolute Neuts (auto) 6.59 Absolute Nucleated RBC 0.00 Nucleated RBC % 0.0 Sodium Potassium Chloride Carbon Dioxide Anion Gap BUN Creatinine Estim Creat Clear Calc Estimated GFR Glucose POC Capillary Glucose 102 93 Calculated Osmolality Calcium Total Bilirubin AST ALT Alkaline Phosphatase Total Protein Albumin 06/13/25 06/12/25 06/12/25 05:59 22:01 16:53 WBC RBC Hgb Hct MCV MCH MCHC RDW Plt Count MPV Immature Gran % (Auto) Neut % (Auto) Lymph % (Auto) [place] % (Auto) Eos % (Auto) Baso % (Auto) Lymph # (Auto) [place] # (Auto) Eos # (Auto) Baso # (Auto) Abs Immat Gran (auto) Absolute Neuts (auto) Absolute Nucleated RBC Nucleated RBC % Sodium 139 Potassium 4.7 Chloride 100 Carbon Dioxide 35 H Anion Gap 4 BUN 9 Creatinine 0.53 L Estim Creat Clear Calc 117 Estimated GFR > 60 Glucose 100 POC Capillary Glucose 86 90 Calculated Osmolality 286 Calcium 9.5 Total Bilirubin 0.4 AST 23 ALT 22 Alkaline Phosphatase 97 Total Protein 6.9 Albumin 3.7 Imaging Radiologist's impression: Ordering Physician: Deshaun Rincon MD Date of Service: 06/11/25 Procedure(s): CT brain wo con Accession Number(s): [id number] cc: Deshaun Rincon MD; Sally, Rizwan Donohue MD~ CT HEAD NON-CONTRAST Clinical History: headache/ weakness/ AMS Comparison: None Technique: Unenhanced axial images skull base to vertex Coronal, sagittal reformats CT images acquired with automatic exposure control for dose reduction DLP: 681 mGy-cm Findings: White matter changes, typically chronic microvascular ischemic disease. Right thalamic lacune. Sulci, ventricles: Unremarkable. No intracerebral hemorrhage. No evidence acute territorial infarct. No mass effect, midline shift. Bony calvarium intact. Visualized paranasal sinuses: Left maxillary mucosal thickening. Mastoid air cells: Clear. IMPRESSION: 1. No acute intracranial findings. Reviewed, dictated and finalized at location R. Ordering Physician: Deshaun Rincon MD Date of Service: 06/11/25 Procedure(s): CT facial bones wo/w con Accession Number(s): [id number] cc: Deshaun Rincon MD; SallyRizwan MD~ CT facial bones CLINICAL HISTORY: swelling left jaw, involves Lt. upper posterior molar. Technique: Images through face Sagittal and coronal reformats. No contrast CT images acquired with automatic exposure control for dose reduction DLP: 525 mGy-cm Comparison: None Findings: Nondisplaced nasal fracture. Likely chronic. Otherwise no acute facial fracture identified. Left cheek soft tissue swelling. Plate and screw fixation right anterior mandible and left lateral mandible. Left mandibular premolar periapical lucencies/infection. Left maxillary premolar cavity. Left maxillary posterior molar periapical dental lucency, overlying soft tissue inflammation IMPRESSION: 1. Left maxillary posterior molar periapical dental lucency and/or infection. Overlying soft tissue inflammatory change without abscess. Recommend dental consultation. 2. Additional findings as above. Reviewed, dictated and finalized at location R. Ordering Physician: Romana Blandon APRN Date of Service: 06/13/25 Procedure(s): XR chest 1V portable Accession Number(s): [id number] cc: Hermelindo Mendez MD; Sally, Rizwan Donohue MD; Romana Blandon APRN~ EXAMINATION: XR chest 1V portable COMPARISON: No comparisons available. HISTORY: hypoxia. SHORTNESS OF BREATH. FINDINGS: The lungs are clear, no effusion. No pneumothorax. Heart is normal size. Mediastinal and hilar contours are within normal limits. Bony thorax no acute abnormality. Miscellaneous: None Impression: No acute cardiopulmonary abnormality. Reviewed, dictated and finalized at location P. Discharge Plan Discharge Attending physician on discharge: Subhash Mendez Consulting providers: Romana Blandon; Loc Riley; Prabhakar Vizcaino; Frederic Major Discharging Clinician: Romana Blandon Patient Disposition: Home Activity: as tolerated Diet: heart healthy and diabetic Discharge Instructions: Take your next dose of antibiotics at 9 pm tonight. Finish all the antibiotics that were given to you from the ER even if you are feeling better. Please call your dentist and get an appointment ADDIE to have your tooth extracted. Please use Listerine mouth wash four times per day (after each meal and before bed) [place] your teeth after each meal and before bed. Patient Instructions: Antibiotic Form, Amoxicillin/Clavulanate Potassium (By mouth), Pain Management (DC), Fall Prevention for Older Adults (DC), Altered Mental Status (GEN) Patient Language: [place] Stand Alone Forms: General Discharge Information Follow-up/Referrals: Sally,MD Rizwan [Primary Care Provider, Family Practice] Referral Note: call for an appt to be seen within 1-2 weeks of discharge. Discharge Medications: Continued carisoprodol 350 mg tablet 350 mg PO TID PRN (Reason: muscle pain) metformin 500 mg tablet 500 mg PO DAILY atorvastatin 80 mg tablet 80 mg PO DAILY venlafaxine 75 mg tablet 75 mg PO BID hydrocodone-acetaminophen 10-325 mg tablet 1 tablet PO TID potassium chloride 20 mEq tablet,ER particles/crystals 20 meq PO DAILY felodipine 10 mg tablet extended release 24 hr 10 mg PO DAILY lisinopril 2.5 mg tablet 2.5 mg PO DAILY atenolol 50 mg tablet 50 mg PO BID budesonide-formoterol [Symbicort] 160-4.5 mcg/actuation HFA aerosol inhaler 1 inh INHALATION DAILY PRN (Reason: shortness of breath or wheezing) Spiriva Respimat 2.5 mcg/actuation mist 2 puff INHALATION DAILY PRN (Reason: shortness of breath or wheezing) amoxicillin-pot clavulanate 875-125 mg tablet 1 tablet PO BID 10 Days Qty: 20 0RF hydrocodone-acetaminophen 10-325 mg tablet 1 tablet PO Q8H PRN (Reason: pain) Qty: 20 0RF losartan 50 mg tablet 50 mg PO DAILY ergocalciferol (vitamin D2) [Vitamin D2] 1,250 mcg (50,000 unit) capsule 50,000 unit PO WEEKLY albuterol sulfate 90 mcg/actuation HFA aerosol inhaler 1 puff INHALATION DAILY Date of admission: 06/12/25 14:40 Primary Care Provider: Sally,Rizwan Admitting Provider: Subhash Mendez Attending physician on admission: Subhash Mendez Condition: Stable Quality VTE Prophylaxis VTE prophylaxis: pharmacologic ordered
--- NOTE | 2025-06-13 14:10 | PC.NURSE ---
IV site discontinued at 1400 in anticipation of discharge. Discharge instructions given to patient. Patient voiced understanding. Patient left unit in w/c accompanied by this nurse. Patient left hospital grounds in privately owned vehicle.
--- NOTE | 2025-06-15 10:28 | PC.NURSE ---
Discharge call back unable to reach, mail box full, unable to leave message
--- NOTE | 2025-06-17 10:55 | PC.NURSE ---
Unable to complete DC call back, mailbox full.
== END 2025-06-13 14:10 | disposition home or self-care (01) | DRG 114 ==
LOC: CHSED 12:37 → CHS2ND 12:44
PROVIDERS: Nurse Practitioner Adult Health; Admitting Provider Internal Medicine; Emergency Provider Emergency Medicine; PCP Family Medicine; Visit Provider Internal Medicine
DX: K04.7 Periapical abscess without sinus (principal); K02.9 Dental caries, unspecified; R41.82 Altered mental status, unspecified; D72.829 Elevated white blood cell count, unspecified; E11.9 Type 2 diabetes mellitus without complications; E78.5 Hyperlipidemia, unspecified; F41.9 Anxiety disorder, unspecified; F17.210 Nicotine dependence, cigarettes, uncomplicated; F12.90 Cannabis use, unspecified, uncomplicated; I25.10 Atherosclerotic heart disease of native coronary artery without angina pectoris; I10 Essential (primary) hypertension; J44.9 Chronic obstructive pulmonary disease, unspecified; J96.01 Acute respiratory failure with hypoxia; R22.0 Localized swelling, mass and lump, head; Z79.84 Long term (current) use of oral hypoglycemic drugs; Z95.5 Presence of coronary angioplasty implant and graft
CPT/HCPCS: 36415; 70450; 70488; 71045; 80053; 80307; 81003; 82077; 82948; 83605; 83735; 84443; 84484; 85025; 85652; 86140; 87040; 93005; 94618; 96361; 96365; 96372; 99285; A9270; G0378; J0295; J1650; J1885; J7030; Q9967